=== PATIENT | female | born 1980 | race Caucasian/White ===

== ENCOUNTER 2017-06-07 20:34 | Emergency (ER) | payer SELFPAY ==
[~2017-06-07] VITALS: Ht 152.4 cm; Wt 56.8 kg
[~2017-06-07 20:34] MED LIST: NOMED
[2017-06-07 20:59] VITALS: BP 115/62; PULSE 61; RESP 21; O2SAT 100
--- NOTE | 2017-06-07 21:31 | DRSVH ---
PROCEDURE: X-RAY RIGHT ANKLE, MINIMUM THREE VIEWS ([id number]) INDICATIONS: PAIN TECHNIQUE: 3 views of the ankle were acquired. COMPARISON: None. FINDINGS: Bones: No fractures or dislocations. Ankle mortise is normally aligned. No suspicious bony lesions . Soft tissues: No tibiotalar joint effusion. Achilles tendon appears normal. IMPRESSION: 1. No fracture or subluxation. Dictated by: Mc Guadarrama M.D. on 06/07/2017 at 21:29 Approved by: Mc Guadarrama M.D. on 06/07/2017 at 21:29
--- NOTE | 2017-06-07 21:52 | ED.REPORT ---
HPI-Extremity Problem Lower Date of Service Jun 07, 2017 ED Provider: Dr. Solis Pt is a 37 year old female presenting to the ED complaining of right ankle pain onset just prior to arrival after she rolled it while walking. She states that she heard a "grating pop" as she was walking. Denies fever, chills, nausea, vomiting, SOB or wheezing. Nursing Notes Stated Complaint: RIGHT ANKLE PAIN Chief Complaint: Extremity Trauma Nursing Notes Reviewed: Yes Allergies: Coded Allergies: metoclopramide (Verified Allergy, Severe, Agitation, 06/07/17) prochlorperazine (Unverified Allergy, Unknown, 06/07/17) Scheduled PRN Ibuprofen (Ibuprofen) 600 Mg Tablet 600 MG PO QID PRN PRN For Pain Miscellaneous Medications No Historical Medication (No Historical Medication) Ea General Time Seen by MD: 21:51 Chief Complaint Ankle injury right Hx Obtained From: Patient Arrived By: Wheelchair Onset Occurred: Just prior to arrival Symptom Duration: Since onset Caused by: Accidental Location: : Ankle right Quality: Painful Severity: Current: Severe Severity: Maximum: Severe Recent Healthcare: No recent doctor visit, No recent hospitalization Similar Sx Previous: Yes Past Medical History Past Medical History healthy Past Surgical History denies Smoking History Unknown if Ever Smoker Ambulatory Status Independent Review of Systems Constitutional: Denies: Chills, Fever Musculoskeletal: Reports: Extremity pain, Joint pain Complete sys rev & neg: except as marked. Respiratory: Denies: Shortness of breath, Wheezing GI: Denies: Nausea, Vomiting Physical Exam Initial Vital Signs Vital Signs (First) Date Time Temp Pulse Resp B/P Pulse Ox O2 Delivery O2 Flow Rate FiO2 06/07/17 20:59 36.8 61 21 115/62 100 Room Air Initial VS: Reviewed General/Constitutional: Well-developed, Well-nourished Head / Eyes: Atraumatic, Normocephalic, PERRL Neck: Full range of motion Respiratory: No respiratory distress Abdomen / GI: Soft, Non-tender, No guarding, No rebound, No distention Upper Extremities: Vascular intact, Neuro intact, No swelling, No tenderness Skin: Warm, Dry, No cyanosis Neurologic: Alert, Oriented, Nonfocal Psychiatric: Mood/affect normal, Behavior normal, Normal thought content Ankle / Foot: No deformity, Neurologic intact, Vascular intact Tender swollen right lateral malleolus. Decreased sensation 4th and 5th toe. Interpretation & Diagnostics X-Ray Interpretation Xray Interpretation: IMPRESSION: 1. No fracture or subluxation. Dictated by: Mc Guadarrama M.D. on 06/07/2017 at 21:29 X-Ray Ordered: Ankle right Interpretation / Wet Read by: Interpret - Radiologist Re-Eval/Medical Decision Med Decision/Clinical Course 37-year-old presents with pain in her right ankle after rolling injury. X-ray negative for fracture. Placed in an air cast splints with routine instructions. Not tolerant of ice pack. Ibuprofen and elevation and follow up with PCP and/or orthopedics Re-Evaluation/Progress : Time of Eval: 22:00 Patient Status: Condition improved Re-Evaluation/Progress Note: Discussed plan for discharge. Pt understands and agrees with plan. Counseled Regarding: Diagnosis, Lab results, Need for follow-up, When/why to return to ED Discharge & Departure Impression: Primary Impression: Ankle sprain Encounter type: initial encounter Involved ligament of ankle: unspecified ligament Laterality: right Qualified Code: S93.401A - Sprain of unspecified ligament of right ankle, initial encounter Disposition: Home Discharge Condition All VS Reviewed: Yes Condition: Improved Patient Instructions: Ankle Sprain (ED), Crutch Instructions (ED) Additional Instructions: Use air cast splint over either a tall sock or the Calin wrap, and inside of a shoe, whenever up. Remove all that to sleep. Wear the splint as long as it is tender to bear weight. Use crutches for the first several days until you can bear weight with the splint without significant pain. Continue the splint for week or so after that, until you can bear weight without pain at all. Elevate above your heart whenever possible. Frequent icing over the first twenty-four hours can reduce swelling if you can tolerate it. Follow-up with orthopedics in the office. Follow-up with your doctor in the office. Return if any immediate problems. Referrals: Ajith Hackett MD Attestation Portions of this note were transcribed by Yoli Harry. I, Dr. Solis personally performed the history, physical exam and medical decision-making; I reviewed and confirmed the accuracy of the information in the transcribed note. Signed by: Marcelino Francisco, 06/07/2017. copies to: Ajith Hackett MD, Christopher W MD Jun 07, 2017 21:52 YOLI HARRY Jun 07, 2017 21:59
[2017-06-07] MEDS ORDERED: IBUP-1827 PO (22:06)
[2017-06-07 23:16] VITALS: BP 120/78; PULSE 92; RESP 14; O2SAT 96
== END 2017-06-07 22:30 | disposition home or self-care (01) ==
LOC: SED 20:34
DX: S93.491A Sprain of other ligament of right ankle, initial encounter (principal); X50.9XXA Other and unspecified overexertion or strenuous movements or postures, initial encounter; Y93.01 Activity, walking, marching and hiking; Y92.89 Other specified places as the place of occurrence of the external cause; Y99.8 Other external cause status; Z88.8 Allergy status to other drugs, medicaments and biological substances